=== PATIENT | female | born 1940 | race Caucasian/White ===

== ENCOUNTER → 2019-04-28 | Outpatient (CLI) | payer MEDICARE, OTHER ==
[~2019-04-28] MED LIST: ACET325 PO; CALCAVITD PO; Cleocin T60 ML TP; DEXL60CA3; ERGO400; METR59TL; PHENY100ER PO; PROM25 PO; STOOL SOFTENER50 MG PO; Zofran Odt4 MG SL
== END ==
LOC: LAB SHORT 08:35 → PLD 08:35
DX: D48.5 Neoplasm of uncertain behavior of skin (principal)
CPT/HCPCS: 88305

== ENCOUNTER 2019-12-15 08:45 | Day surgery (SDC) | payer MEDICARE, OTHER ==
[~2019-12-15] VITALS: Ht 162.6 cm; Wt 81.8 kg
[~2019-12-15 08:45] MED LIST changes: +Travatan Z5 ML BOTHEYES
--- NOTE | 2019-12-15 09:10 | NUR ---
12/15/19 0910 Anny Sotomayor 1 TRY RIGHT HAND VALVE
== END 2019-12-15 10:52 | disposition home or self-care (01) ==
LOC: ORSCSDS 08:45
PROVIDERS: Internal Medicine Gastroenterology
PROC: 0DB68ZX Excision of Stomach, Via Natural or Artificial Opening Endoscopic, Diagnostic (ICD-10-PCS; principal; 2019-12-15 10:00)
PROC: 0D758ZZ Dilation of Esophagus, Via Natural or Artificial Opening Endoscopic (ICD-10-PCS; principal; 2019-12-15 10:00)
PROC: 0DB58ZX Excision of Esophagus, Via Natural or Artificial Opening Endoscopic, Diagnostic (ICD-10-PCS; principal; 2019-12-15 10:00)
DX: K22.70 Barrett's esophagus without dysplasia (principal); R13.14 Dysphagia, pharyngoesophageal phase; E66.9 Obesity, unspecified; Z68.31 Body mass index [BMI] 31.0-31.9, adult; K57.30 Diverticulosis of large intestine without perforation or abscess without bleeding; Z79.899 Other long term (current) drug therapy
CPT/HCPCS: 88305; 88342; J2704; J7120

== ENCOUNTER → 2020-05-03 | Outpatient (CLI) | payer MEDICARE, OTHER | LOC: LAB 08:04 → LAB SHORT 08:04 | DX: D48.5 Neoplasm of uncertain behavior of skin (principal) | CPT/HCPCS: 88305 ==

== ENCOUNTER 2023-01-05 10:51 | Day surgery (SDC) | payer MEDICARE, OTHER ==
[~2023-01-05] VITALS: Ht 162.6 cm; Wt 81.1 kg
[2023-01-05] MEDS ORDERED: HYDCHL25 PO (11:16)
[2023-01-05] MEDS ORDERED: CALCA500S6 PO (11:16)
[2023-01-05] MEDS ORDERED: LATA.005SO (11:16)
[2023-01-05] MEDS ORDERED: ZINC 15 MG (11:17)
[2023-01-05] MEDS ORDERED: OMEP20ER (11:17)
[2023-01-05] MEDS ORDERED: VIT (11:17)
[2023-01-05 12:35] VITALS: BP 150/73
--- NOTE | 2023-01-05 12:36 | NUR ---
01/05/23 1236 Eli Carlton PATIENT DRINKING APPLE JUICE. REPORTS THROAT SORENESS IS IMPROVING.
== END 2023-01-05 12:45 | disposition home or self-care (01) ==
LOC: ORSCSDS 10:51
PROVIDERS: Internal Medicine Gastroenterology
PROC: 0DB68ZX Excision of Stomach, Via Natural or Artificial Opening Endoscopic, Diagnostic (ICD-10-PCS; principal; 2023-01-05 12:00)
PROC: 0DB58ZX Excision of Esophagus, Via Natural or Artificial Opening Endoscopic, Diagnostic (ICD-10-PCS; principal; 2023-01-05 12:00)
PROC: 0D757ZZ Dilation of Esophagus, Via Natural or Artificial Opening (ICD-10-PCS; principal; 2023-01-05 12:00)
DX: R13.14 Dysphagia, pharyngoesophageal phase (principal); K29.70 Gastritis, unspecified, without bleeding; K22.2 Esophageal obstruction; Z68.31 Body mass index [BMI] 31.0-31.9, adult; Z79.899 Other long term (current) drug therapy
CPT/HCPCS: 88305; 88342; J2704; J7120

== ENCOUNTER 2024-07-03 06:22 | Day surgery (SDC) | payer MEDICARE, OTHER ==
[~2024-07-03] VITALS: Ht 162.6 cm; Wt 73.4 kg
[~2024-07-03 06:22] MED LIST changes: +CALCA500S6 PO; +HYDCHL25 PO; +LATA.005SO; +OMEP20ER; +VIT; +ZINC 15 MG
[2024-07-03] MEDS ORDERED: propofoL 50 ML IV ONE (07:38)
[2024-07-03] MEDS ORDERED: Lactated Ringer's 1,000 ML IV ONE ×2 (07:38→07:43)
[2024-07-03 08:43] VITALS: BP 153/81
== END 2024-07-03 08:46 | disposition home or self-care (01) ==
LOC: ORSCSDS 06:22
PROVIDERS: Internal Medicine Gastroenterology
PROC: 0D757ZZ Dilation of Esophagus, Via Natural or Artificial Opening (ICD-10-PCS; principal; 2024-07-03 08:00)
PROC: 0DB68ZX Excision of Stomach, Via Natural or Artificial Opening Endoscopic, Diagnostic (ICD-10-PCS; principal; 2024-07-03 08:00)
PROC: 0DB98ZX Excision of Duodenum, Via Natural or Artificial Opening Endoscopic, Diagnostic (ICD-10-PCS; principal; 2024-07-03 08:00)
PROC: 0DB58ZX Excision of Esophagus, Via Natural or Artificial Opening Endoscopic, Diagnostic (ICD-10-PCS; principal; 2024-07-03 08:00)
DX: R13.10 Dysphagia, unspecified (principal); K21.9 Gastro-esophageal reflux disease without esophagitis; K22.70 Barrett's esophagus without dysplasia; Q40.2 Other specified congenital malformations of stomach; K31.7 Polyp of stomach and duodenum; Z79.899 Other long term (current) drug therapy
CPT/HCPCS: 88305; 88342; J2704; J7120